=== PATIENT | female | born 2000 | race Caucasian/White ===

== ENCOUNTER → 2022-11-03 08:15 | Outpatient (CLI) | payer OTHER, MEDICAID, SELFPAY ==
[2022-11-03 10:13] LABS: Urine N gonorrhoeae NOT DETECTED
[2022-11-03 10:24] LABS: Urine Chlamydia NOT DETECTED
[2022-11-03 12:17] LABS: Pregnancy Test Urine Negative (Negative)
== END ==
PROVIDERS: PCP Family Medicine; Visit Provider Physician Assistant
DX: N39.0 Urinary tract infection, site not specified (principal); R30.0 Dysuria
CPT/HCPCS: 81002; 81025; 87086; 87491; 87591